=== PATIENT | female | born 1975 | race Hispanic/Latino ===

== ENCOUNTER → 2019-10-15 | Outpatient (CLI) | payer MEDICAID | END | disposition home or self-care (01) | LOC: RAH 10-08 09:24 | PROVIDERS: ATTEND Internal Medicine Gastroenterology | DX: K76.0 Fatty (change of) liver, not elsewhere classified (principal); N01.3 Rapidly progressive nephritic syndrome with diffuse mesangial proliferative glomerulonephritis; R10.13 Epigastric pain | CPT/HCPCS: 76700 ==